=== PATIENT | male | born 1990 | race African-American/Black ===

== ENCOUNTER → 2021-04-19 14:40 | Outpatient (CLI) | payer BC, SELFPAY ==
--- NOTE | ~2021-04-19 | XR_ITS ---
XR thoracic spine 2V DATE: 04/19/2021 15:10 INDICATION: Back pain TECHNIQUE: AP, lateral views COMPARISON: 04/19/2021 cervical spine FINDINGS: Normal alignment. No fracture or dislocation. The thoracic pedicles are intact. No tony eusebia soft tissue thickening. IMPRESSION: Negative Reviewed, dictated and finalized at location A. T SHIPPER IMPRESSION: Negative
--- NOTE | ~2021-04-19 | XR_ITS ---
XR lumbar spine 2-3V DATE: 04/19/2021 15:10 INDICATION: Low back pain. Lumbago. TECHNIQUE: Standing AP, lateral and coned lateral lumbosacral views COMPARISON: None FINDINGS: Normal alignment of the lumbar spine. No fracture or bone destruction. The lumbar pedicle s are intact. Lumbar and lumbosacral interspaces are well preserved. The sacroiliac joints are norm al. IMPRESSION: Negative Reviewed, dictated and finalized at location A. T TOUR GUIDE IMPRESSION: Negative
--- NOTE | ~2021-04-19 | XR_ITS ---
XR cervical spine 4-5V DATE: 04/19/2021 15:10 INDICATION: Neck pain TECHNIQUE: AP, open-mouth, lateral, swimmer views COMPARISON: None FINDINGS: There is straightening of the cervical spine. C1 and C2 are normally aligned and the odonto id process is intact. No fracture or dislocation or locked facet or prevertebral soft tissue swelling . Cervical interspaces are preserved. 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
== END ==
PROVIDERS: PCP Emergency Medicine; Visit Provider Emergency Medicine
DX: M54.50 Low back pain, unspecified (principal); M53.82 Other specified dorsopathies, cervical region
CPT/HCPCS: 72050; 72070; 72100